=== PATIENT | female | born 2000 | race Caucasian/White ===

== ENCOUNTER 2022-06-13 14:11 | Emergency (ER) | payer OTHER, SELFPAY ==
--- NOTE | ~2022-06-13 | XR_ITS ---
EXAM: XR soft tissue neck DATE: 06/13/2022 14:45 HISTORY: choked on food, feels like it's still in her throat . COMPARISON: None available. FINDINGS: Airways are clear. No prevertebral swelling. Reversal of the normal cervical lordosis. Reg ional bones and soft tissues are otherwise normal. No radiopaque foreign body. IMPRESSION: Normal soft tissue neck radiograph findings. Reviewed, dictated and finalized at location K.
[2022-06-13 14:24] VITALS: BP 122/85; PULSE 78; RESP 18; TEMP 37.1; O2SAT 100
--- NOTE | 2022-06-13 14:33 | ED.GENADULT ---
HPI - General Adult General Chief complaint: Upper Respiratory Infection Stated complaint: sob Time Seen by Provider: 06/13/22 14:23 History of Present Illness HPI narrative: 22-year-old female presented for complaint of left throat pain and feeling like breathing is hindered. Onset last night after taking marijuana edible. She states she ate chicken nuggets and felt like they were lodged. Continues to have similar feeling that something has moved from the throat down to the chest worse today since eating crackers. Endorses feeling like she is gagging or going to throw up. She is able to talk and drink/eat without incident, just reports pain. She has not taken additional edibles or smoked marijuana since last night. She denies cough, shortness of breath, wheezing, dizziness, fevers or chills. Denies sick contacts. Related Data Home Medications Medication Instructions Recorded Confirmed No Home Medications 06/13/22 06/13/22 Allergies Allergy/AdvReac Type Severity Reaction Status Date / Time pomegranate Allergy Unknown Verified 06/13/22 14:34 Review of Systems Review of Systems: CONSTITUTIONAL: Denies body aches, fever, chills, or sweats. ENT: Denies rhinorrhea, congestion, or otalgia. CARDIOVASCULAR: Denies chest pain, palpitations, or edema. RESPIRATORY: Denies dyspnea. GASTROINTESTINAL: Denies abdominal pain, vomiting, or diarrhea. SKIN: Denies rash, itching, or wounds. MUSCULOSKELETAL: Denies back pain, joint pain, or myalgia. NEUROLOGIC: Denies headache Exam Narrative: GENERAL: well-appearing, no acute distress. EYES: conjunctivae clear ENT: Mucous membranes moist. TM pearly floyd with normal light reflex bilaterally; no tragal tenderness. Oropharynx normal without lesions. No drooling, no hoarseness, no trismus, uvula midline. No tripod positioning, hot potato voice, or soft palate swelling. NECK: Supple. No lymphadenopathy CHEST: Clear to auscultation, breath sounds equal. No respiratory distress, speaks in full sentences. HEART: Regular rate and rhythm. No murmur heard. SKIN: Warm, dry, no rash. NEURO: Alert and oriented x3. Course Course Emergency Course: Patient is aware of diagnosis, understands and agrees to treatment plan. Anticipatory guidance given. Patient agrees to follow-up as directed and is aware of reasons to seek care at the emergency department. Portions of this record may have been created with voice recognition software Level of Care: Express Care Visit Vital Signs Vital signs: Vital Signs Temperature 98.8 F 06/13/22 14:24 Pulse Rate 78 06/13/22 14:24 Respiratory Rate 18 06/13/22 14:24 Blood Pressure 122/85 06/13/22 14:24 Pulse Oximetry 100 06/13/22 14:24 Oxygen Delivery Room Air 06/13/22 14:24 Temperature 98.8 F 06/13/22 14:24 Pulse Rate 78 06/13/22 14:24 Respiratory Rate 18 06/13/22 14:24 Blood Pressure 122/85 06/13/22 14:24 Pulse Oximetry 100 06/13/22 14:24 Oxygen Delivery Room Air 06/13/22 14:24 Medical Decision Making MDM Narrative Medical decision making narrative: Xray soft tissue neck negative, results reviewed with patient. Pt declined strep test. Suspect esophageal abrasion. Pt is stable and tolerated oral intake. She is advised to monitor symptoms; Advised supportive measures and signs/symptoms to go to the ER. Pt is appropriate for outpt treatment and f/u. Differential Diagnosis Differential Diagnosis: Influenza, covid, sinusitis, OM, strep pharyngitis, URI, foreign body, esophageal stricture Vital Signs Vital Signs: Vital Signs Temperature 98.8 F 06/13/22 14:24 Pulse Rate 78 06/13/22 14:24 Respiratory Rate 18 06/13/22 14:24 Blood Pressure 122/85 06/13/22 14:24 Pulse Oximetry 100 06/13/22 14:24 Oxygen Delivery Room Air 06/13/22 14:24 Temperature 98.8 F 06/13/22 14:24 Pulse Rate 78 06/13/22 14:24 Respiratory Rate 18 06/13/22 14:24 Blood Pressure 122/85 06/13/22
== END 2022-06-13 15:15 | disposition home or self-care (01) ==
PROVIDERS: Emergency Provider Nurse Practitioner Family; PCP Nurse Practitioner Family
DX: R07.0 Pain in throat (principal)
CPT/HCPCS: 70360; 99213; G0463

== ENCOUNTER 2022-07-14 15:14 | Emergency (ER) | payer OTHER, SELFPAY ==
--- NOTE | ~2022-07-14 | XR_ITS ---
EXAMINATION: XR chest 2V DATE: 07/14/2022 17:03 INDICATION: Chest pain and shortness of breath TECHNIQUE: AP and lateral views of the chest are obtained. COMPARISON: None available FINDINGS: The lungs are free of acute opacities. No pleural effusion or pneumothorax. The cardiomedia stinal silhouette is normal. The visualized bones and soft tissues are unremarkable. IMPRESSION: 1. No acute cardiopulmonary abnormality. Reviewed, dictated and finalized at location B.
[2022-07-14 15:24] VITALS: BP 132/80; PULSE 113; RESP 17; TEMP 37.1; O2SAT 100
--- NOTE | 2022-07-14 15:48 | ECG_ITS ---
Measurements Intervals [place] Rate: 109 P: 75 TX: 114 QRS: 80 QRSD: 86 T: 8 QT: 334 QTc: 450 Interpretive Statements SINUS TACHYCARDIA WITH SHORT TX INTERVAL POSSIBLE RIGHT ATRIAL ENLARGEMENT ST DEVIATION AND MODERATE T-WAVE ABNORMALITY, CONSIDER ANTERIOR ISCHEMIA ABNORMAL ECG NO PREVIOUS STUDY AVAILABLE FOR COMPARISON Electronically Signed On 07-14-2022 18:29:49 CDT by Thad Mehta M.D.
[2022-07-14] MEDS: FAMOTIDINE 20 MG TABLET PO (17:18)
[2022-07-14 17:31] LABS: Basophils Absolute Auto 0.1 K/mm3 (0.0-0.1); Basophils Percent Auto 0.6 % (0.2-1.2); Eosinophils Percent Auto 0.1 % (0-4.4); Hematocrit 46.7 % (37.0-47.0); Hemoglobin 15.7 g/dL (12.0-15.0); Immature Granulocyte Absolute 0.02 K/mm3 (0.00-0.031); Immature Granulocyte Percent A 0.2 % (0-0.5); Lymphocytes Absolute Auto 1.51 K/mm3 (0.9-3.2); Lymphocytes Percent Auto 16.7 % (18.3-44.2); Mean Corpuscular HGB Conc 33.6 g/dl (32-36); Mean Corpuscular Hemoglobin 27.7 pg (26-34); Mean Corpuscular Volume 82.4 fl (80-100); Mean Platelet Volume 10.7 fl (7.4-10.4); Monocytes Absolute Auto 0.4 K/mm3 (0.1-0.6); Neutrophils Absolute Auto 7.1 K/mm3 (1.3-6.7); Neutrophils Percent Auto 78.4 % (45.5-73.1); Platelet Count Result 242 k/mm3 (150-375); Red Blood Count 5.67 M/mm3 (4.2-5.4); White Blood Count 9.1 K/mm3 (4.5-10.0)
[2022-07-14 17:40] LABS: Alanine Aminotransferase 16 U/L (6-35); Albumin Level 5.5 g/dL (3.5-5.1); Alkaline Phosphatase 72 U/L (38-126); Anion Gap 15 mmol/L (8-16); Aspartate Amino Transferase 25 U/L (14-36); Bilirubin,Total 0.8 mg/dL (0.2-1.3); Blood Urea Nitrogen 12 mg/dL (7-17); Calcium 9.8 mg/dL (8.4-10.2); Carbon Dioxide 24 mmol/L (22-30); Chloride 103 mmol/L (98-107); Estimated CRCL calculation 88 ml/min; Estimated Glomerular Filt Rate > 60; Glucose 91 mg/dL (65-110); Potassium 4.3 mmol/L (3.4-5.0); Sodium 142 mmol/L (137-145)
[2022-07-14 17:53] LABS: NT Pro B Type Natriuretic Pept 21 pg/mL (5-100); Troponin I < 0.012 ng/mL (0.000-0.034)
[2022-07-14 17:54] LABS: INR 1.1; Prothrombin Time 13.4 Seconds (11.1-14.7)
[2022-07-14 17:55] LABS: Partial Thromboplastin Time 25.3 SECONDS (22.3-36.8)
--- NOTE | 2022-07-14 19:06 | ED.GENADULT ---
HPI - General Adult General Chief complaint: Allergic Reaction Stated complaint: allergic reaction Time Seen by Provider: 07/14/22 16:36 History of Present Illness HPI narrative: Patient is a 22-year-old female who presents ER with concerns for allergic reaction. Patient accidentally ingested some pomegranate juice this evening. She said for subsequent exposures to pomegranate causing her to have rash and swelling of the throat. She is seeing an language interpreter and has been prescribed an EpiPen but has had trouble filling it. She has taken Benadryl after this exposure which is helped but then she started feeling tingling in her fingers and around her mouth and her hands started to cramp and spasm. She also developed some chest tightness. This occurred 1 week ago she had a mask around division human resources manager and they told her her EKG was abnormal but she opted not to be evaluated. She has no cardiac history and no family history of cardiac events at young age. Related Data Home Medications Medication Instructions Recorded Confirmed No Home Medications 06/13/22 06/13/22 Allergies Allergy/AdvReac Type Severity Reaction Status Date / Time pomegranate Allergy Unknown Verified 06/13/22 14:34 Review of Systems Review of Systems: All systems reviewed & are unremarkable except as noted in HPI and below Constitutional: Constitutional: Denies chills, Denies fatigue and Denies fever(s) ENT: Denies nasal congestion and Reports sore throat Comments: Swelling of her tongue Cardiovascular: Cardiovascular: Reports chest pain, Reports rapid heart rate and Denies radiating jaw, neck or arm pain Respiratory: Respiratory: Denies cough and Denies dyspnea Gastrointestinal: Gastrointestinal: Denies abdominal pain, Reports nausea and Denies vomiting PMFSH Past Medical History Medical History (Updated 07/14/22 @ 21:15 by Jj Palomino MD) Healthy female adult Surgical History Surgical History (Updated 07/14/22 @ 21:15 by Jj Palomino MD) No pertinent past surgical history Social History Social History (Updated 07/14/22 @ 21:15 by Jj Palomino MD) Smoking status: Never smoker Exam Narrative: GENERAL: Well-appearing, well-nourished, and in no acute distress. HEAD: Normocephalic, atraumatic. ENT: Mucous membranes moist. No angioedema NECK: Supple. CHEST: Clear to auscultation. No respiratory distress. HEART: Regular rate and rhythm. Normal peripheral pulses. ABDOMEN: Soft, nontender, nondistended. EXTREMITIES: Normal range of motion. No edema. SKIN: Warm, dry, no rash. NEURO: Alert and oriented x3. PSYCH: Normal mood and affect. Course Course Emergency Course: Patient looks well. No wheezing. No signs of anaphylaxis. Suspect some of her chest discomfort was related to irritation of the esophagus. Patient does have an abnormal EKG but may be related to her youth and body habitus. Is recommended she follow-up with her primary care doctor to be evaluated further. Troponins negative x2. Also suspect patient had anxiety attack with carpal spasm. Vital Signs Vital signs: Vital Signs Temperature 98.8 F 07/14/22 15:24 Pulse Rate 113 H 07/14/22 15:24 Respiratory Rate 17 07/14/22 15:24 Blood Pressure 132/80 07/14/22 15:24 Pulse Oximetry 100 07/14/22 15:24 Oxygen Delivery Room Air 07/14/22 15:24 Temperature 98.8 F 07/14/22 15:24 Pulse Rate 113 H 07/14/22 15:24 Respiratory Rate 17 07/14/22 15:24 Blood Pressure 132/80 07/14/22 15:24 Pulse Oximetry 100 07/14/22 15:24 Oxygen Delivery Room Air 07/14/22 15:24 Medical Decision Making Vital Signs Vital Signs: Vital Signs Temperature 98.8 F 07/14/22 15:24 Pulse Rate 113 H 07/14/22 15:24 Respiratory Rate 17 07/14/22 15:24 Blood Pressure 132/80 07/14/22 15:24 Pulse Oximetry 100 07/14/22 15:24 Oxygen Delivery Room Air 07/14/22 15:24 Temperature 98.8 F 07/14/22 15:24 Pulse Rate 113 H /
[2022-07-14 21:04] LABS: Troponin I < 0.012 ng/mL (0.000-0.034)
[2022-07-14 21:19] VITALS: BP 126/82; PULSE 66; RESP 18; O2SAT 100
== END 2022-07-14 21:21 | disposition home or self-care (01) ==
PROVIDERS: Emergency Provider Emergency Medicine; PCP Nurse Practitioner Family
DX: R07.89 Other chest pain (principal); T78.1XXA Other adverse food reactions, not elsewhere classified, initial encounter; R00.0 Tachycardia, unspecified; R94.31 Abnormal electrocardiogram [ECG] [EKG]
CPT/HCPCS: 36415; 71046; 80053; 83880; 84484; 85025; 85610; 85730; 93005; 99284; A9270

== ENCOUNTER 2022-08-21 21:27 | Emergency (ER) | payer OTHER, SELFPAY ==
--- NOTE | ~2022-08-21 | XR_ITS ---
EXAMINATION: XR chest 2V DATE: 08/21/2022 21:49 INDICATION: Chest pain. TECHNIQUE: Frontal and lateral views of the chest were obtained. COMPARISON: Chest 2 views 07/14/2022 FINDINGS: The chest demonstrates clear lungs without pneumonia, pleural effusion, or pneumothorax. Th e heart size is normal. IMPRESSION: 1. No acute cardiopulmonary disease. Reviewed, dictated and finalized at location A.
[2022-08-21 21:28] VITALS: BP 133/81; PULSE 98; RESP 20; TEMP 36.6; O2SAT 100
--- NOTE | 2022-08-21 21:31 | ECG_ITS ---
Measurements Intervals [place] Rate: 87 P: 71 SC: 128 QRS: 63 QRSD: 93 T: 24 QT: 342 QTc: 412 Interpretive Statements SINUS RHYTHM NONSPECIFIC T-WAVE ABNORMALITY- ANTEROLAT/INF LEADS BORDERLINE ECG COMPARED TO ECG 07/14/2022 15:54:12 HEART RATE HAS DECREASED [address]-T WAVE ABNRORMALITY- CONSIDER ISCHEMIA RESOLVED Electronically Signed On 08-21-2022 21:51:08 CDT by Elie Stephen D.O.
[2022-08-21 22:18] LABS: Basophils Percent Auto 0.4 % (0.2-1.2); Eosinophils Percent Auto 0.6 % (0-4.4); Hematocrit 41.8 % (37.0-47.0); Immature Granulocyte Absolute 0.01 K/mm3 (0.00-0.031); Immature Granulocyte Percent A 0.1 % (0-0.5); Lymphocytes Percent Auto 36.5 % (18.3-44.2); Mean Corpuscular HGB Conc 33.5 g/dl (32-36); Mean Corpuscular Hemoglobin 28.2 pg (26-34); Mean Corpuscular Volume 84.1 fl (80-100); Mean Platelet Volume 10.4 fl (7.4-10.4); Monocytes Absolute Auto 0.5 K/mm3 (0.1-0.6); Monocytes Percent Auto 7.2 % (2.6-8.5); Neutrophils Absolute Auto 3.9 K/mm3 (1.3-6.7); Neutrophils Percent Auto 55.2 % (45.5-73.1); Platelet Count Result 228 k/mm3 (150-375); Red Blood Count 4.97 M/mm3 (4.2-5.4); Red Cell Distribution Width 13.1 % (11.5-14.5); White Blood Count 7.1 K/mm3 (4.5-10.0)
[2022-08-21 22:34] LABS: Alanine Aminotransferase 15 U/L (6-35); Albumin Level 4.5 g/dL (3.5-5.1); Alkaline Phosphatase 52 U/L (38-126); Anion Gap 12 mmol/L (8-16); Aspartate Amino Transferase 21 U/L (14-36); Bilirubin,Total 0.4 mg/dL (0.2-1.3); Blood Urea Nitrogen 14 mg/dL (7-17); Calcium 9.1 mg/dL (8.4-10.2); Carbon Dioxide 26 mmol/L (22-30); Chloride 100 mmol/L (98-107); Estimated CRCL calculation 88 ml/min; Estimated Glomerular Filt Rate > 60; Glucose 95 mg/dL (65-110); Lipase 116 U/L (23-300); Potassium 3.6 mmol/L (3.4-5.0); Sodium 138 mmol/L (137-145)
[2022-08-21 22:45] LABS: Troponin I < 0.012 ng/mL (0.000-0.034)
[2022-08-21 22:51] LABS: INR 1.2; Prothrombin Time 14.4 Seconds (11.1-14.7)
[2022-08-21 22:52] LABS: Partial Thromboplastin Time 28.3 SECONDS (22.3-36.8)
--- NOTE | 2022-08-21 23:02 | PC.NURSE ---
Talked to Camilla in lab at 23:02 to add on D Dimer
[2022-08-21 23:16] LABS: D Dimer 0.37 ug/mL (<0.48)
[2022-08-21] MEDS: KETOROLAC 30 MG/ML VIAL (*BKC) IV PUSH (23:22)
--- NOTE | 2022-08-22 00:37 | ED.CHESTPAIN ---
HPI - Chest Pain General Chief Complaint: Chest Pain Stated Complaint: chest pain Time Seen by Provider: 08/21/22 22:23 History of Present Illness HPI narrative: Patient is a 22-year-old female who presents ER with left-sided chest pain. Aching left upper chest. Occasionally going into the neck. Has been preceded by left upper quadrant abdominal pain couple days prior. No diarrhea. No nausea or vomiting. Denies runny nose or sore throat or productive cough. Had some cramping in her left calf. No history of DVT. She is not on control is not a smoker. Has not found alleviating factors at home has not taken any medication. No family history of coronary disease in a young age Related Data Allergies Allergy/AdvReac Type Severity Reaction Status Date / Time pomegranate Allergy Unknown Verified 06/13/22 14:34 Review of Systems Review of Systems: All systems reviewed & are unremarkable except as noted in HPI and below Constitutional: Constitutional: Denies chills, Denies fatigue and Denies fever(s) ENT: Denies nasal congestion and Denies sore throat Cardiovascular: Cardiovascular: Reports chest pain, Denies rapid heart rate and Denies radiating jaw, neck or arm pain Respiratory: Respiratory: Denies cough, Denies dyspnea and Denies wheezing Gastrointestinal: Gastrointestinal: Denies abdominal pain, Denies nausea and Denies vomiting Genitourinary: Genitourinary: Denies nocturia, Denies dysuria and Denies flank pain PMFSH Past Medical History Medical History (Updated 08/22/22 @ 00:38 by Jj Palomino MD) Healthy female adult Surgical History Surgical History (Updated 07/14/22 @ 21:15 by Jj Palomino MD) No pertinent past surgical history Social History Social History (Updated 07/14/22 @ 21:15 by Jj Palomino MD) Smoking status: Never smoker Exam Narrative: GENERAL: Well-appearing, well-nourished, and in no acute distress. HEAD: Normocephalic, atraumatic. EYES: PERRL and EOMI. CHEST: Clear to auscultation. No respiratory distress. No reproducible pain with palpation. HEART: Regular rate and rhythm. Normal peripheral pulses. ABDOMEN: Soft, nontender, nondistended. EXTREMITIES: Normal range of motion. No edema. SKIN: Warm, dry, no rash. NEURO: Alert and oriented x3. PSYCH: Normal mood and affect. Course Course Emergency Course: Patient informed of results. Pain improved with Toradol. Discharge home. Vital Signs Vital signs: Vital Signs Temperature 97.8 F 08/21/22 21:28 Pulse Rate 98 08/21/22 21:28 Respiratory Rate 20 08/21/22 21:28 Blood Pressure 133/81 08/21/22 21:28 Pulse Oximetry 100 08/21/22 21:28 Temperature 97.8 F 08/21/22 21:28 Pulse Rate 98 08/21/22 21:28 Respiratory Rate 20 08/21/22 21:28 Blood Pressure 133/81 08/21/22 21:28 Pulse Oximetry 100 08/21/22 21:28 MDM - Chest Pain Lab Data Result diagrams: 08/21/22 22:14 08/21/22 22:14 Labs: Lab Results 08/21/22 08/21/22 08/21/22 Range/Units 22:14 22:14 22:14 WBC 7.1 (4.5-10.0) K/mm3 RBC 4.97 (4.2-5.4) M/mm3 Hgb 14.0 (12.0-15.0) g/dL Hct 41.8 (37.0-47.0) % MCV 84.1 (80-100) fl MCH 28.2 (26-34) pg MCHC 33.5 (32-36) g/dl RDW 13.1 (11.5-14.5) % Plt Count 228 (150-375) k/mm3 MPV 10.4 (7.4-10.4) fl Immature Gran % (Auto) 0.1 (0-0.5) % Neut % (Auto) 55.2 (45.5-73.1) % Lymph % (Auto) 36.5 (18.3-44.2) % Republic % (Auto) 7.2 (2.6-8.5) % Eos % (Auto) 0.6 (0-4.4) % Baso % (Auto) 0.4 (0.2-1.2) % Lymph # (Auto) 2.60 (0.9-3.2) K/mm3 [place] # (Auto) 0.5 (0.1-0.6) K/mm3 Eos # (Auto) 0.0 (0-0.3) K/mm3 Baso # (Auto) 0.0 (0.0-0.1) K/mm3 Abs Immat Gran (auto) 0.01 (0.00-0.031) K/mm3 Absolute Neuts (auto) 3.9 (1.3-6.7) K/mm3 Absolute Nucleated RBC 0.0 (0.0-0.012) K/mm3 Nucleated RBC % 0.0 (0.0-0.2) % PT 14.4 (11.1-14.7) Second
[2022-08-22 00:58] VITALS: BP 130/75; PULSE 94; RESP 20; O2SAT 99
== END 2022-08-22 00:59 | disposition home or self-care (01) ==
PROVIDERS: Emergency Provider Emergency Medicine; PCP Nurse Practitioner Family
DX: R09.1 Pleurisy (principal); R94.31 Abnormal electrocardiogram [ECG] [EKG]
CPT/HCPCS: 36415; 71046; 80053; 83690; 84484; 85025; 85380; 85610; 85730; 93005; 96374; 99284; J1885

== ENCOUNTER 2022-09-15 14:20 | Outpatient (CLI) | payer OTHER, SELFPAY ==
--- NOTE | ~2022-09-15 | CT_ITS ---
EXAMINATION: CT BRAIN W/O DATE: 09/15/2022 14:35 INDICATION: Headache. TECHNIQUE: Computed tomography (CT) of the head was performed without intravenous contrast. The dose- length product was 599.57 mGy-cm. Automated exposure control and iterative reconstruction technique w ere employed. COMPARISON: No prior studies for comparison. FINDINGS: Normal brain parenchymal volume for age. Normal floyd-white differentiation. No acute intrac ranial hemorrhage, infarction, mass or mass effect. No ventriculomegaly or midline shift. Midline sagittal images demonstrate a normal corpus callosum, c raniovertebral junction and sella turcica. Basilar cisterns are patent. Paranasal sinuses and mastoids are pneumatized. No depressed skull fractures. IMPRESSION: 1. No acute intracranial abnormality. Reviewed, dictated and finalized at location B.
== END 2022-09-15 14:21 ==
PROVIDERS: PCP Nurse Practitioner Family; Visit Provider Nurse Practitioner Family
DX: R51.9 Headache, unspecified (principal)
CPT/HCPCS: 70450

== ENCOUNTER 2022-09-18 11:03 | Outpatient (CLI) | payer OTHER, SELFPAY ==
--- NOTE | ~2022-09-18 | US_ITS ---
EXAMINATION: US pelvic complete DATE: 09/18/2022 13:29 INDICATION: History of miscarriage. Pelvic pain. Comparison:No prior studies for comparison. TECHNIQUE: Multiple transabdominal and endovaginal sonographic images of the pelvis performed. FINDINGS: The uterus measures 7.1 x 3.5 x 4.9 cm. The endometrial complex measures 1.1 cm. The right ovary measures 3.9 x 2.3 x 1.8 cm. The left ovary is nonvisualized. There is no free fluid in the pelvis. There are no abnormal masses seen on either side. IMPRESSION: 1. Unremarkable pelvic ultrasound. Reviewed, dictated and finalized at location B.
--- NOTE | ~2022-09-18 | US_ITS ---
US abdomen complete EXAMINATION: US Abdomen Complete INDICATION: Left abdominal pain PROCEDURE: Realtime High Resolution abdomen ultrasound. COMPARISON: No prior studies for comparison FINDINGS: Gallbladder within normal limits. No gallstones, pericholecystic fluid, gallbladder wall t hickening or biliary dilatation. Common bile duct measures 3 mm. Liver echotexture within normal limits without focal mass. Pancreas within normal limits. Pancreati c tail is obscured by bowel gas. Spleen is unremarkeable. Renal echotexture is within normal limits bilaterally without hydronephrosis, contour deforming mass or renal stone. Right kidney measures 9.9 cm. Left kidney measures 10.9 cm. Visualized aspects of the aorta and IVC are within normal limits. Portal vein is patent. No sonograph ic Davalos's sign indicated by the technologist. IMPRESSION: 1: Normal abdominal ultrasound. Reviewed, dictated and finalized at location B.
== END 2022-09-18 11:04 ==
PROVIDERS: PCP Nurse Practitioner Family; Visit Provider Nurse Practitioner Family
DX: R10.9 Unspecified abdominal pain (principal)
CPT/HCPCS: 76700; 76856